=== PATIENT | female | born 1985 | race Caucasian/White ===

== ENCOUNTER 2018-06-25 05:30 | Inpatient (IN) | payer OTHER ==
--- NOTE | 2018-06-24 16:44 | PDOC.LDHP ---
Labor and Delivery H&P Chief complaint: scheduled induction HPI: 33 yo @ 39w1d by LMP c/w 9 week sono. Antepartum course complicated by anemia, otherwise uncomplicated. Current gestational age (weeks): 39 Due date: 06/30/18 Dating criteria: last menstrual period Grav: 5 Para: 3 OB History Details: 3 term SVDs. 1 MAB @ 15 weeks Current complications: none Abnormal US findings: No Past Medical History: Anemia, anxiety and depression Current medications: pre-woodrow vitamins Previous surgical history: other (LEEP) Allergies/Adverse Reactions: Allergies Allergy/AdvReac Type Severity Reaction Status Date / Time No Known Allergies Allergy Verified 06/25/18 10:54 Social history: none - Physical Exam Vital signs reviewed and normal: yes General: NAD Heart: RRR Lungs: nonlabored breathing Abdomen: gravid Extremeties: trace edema FHT: category 1 (130s, mod priscilla, +accels, no decels) Rudolph contractions every: q5+ min - Vaginal Exam cm dilated: 2 (cephalic) Effacement: 75% Station: -2 - OB Labs Blood type: AB RH: positive Antibody Screen: negative HIV: negative RPR: negative HEPSAg: negative 1 hour GCT: positive 3 hour GTT: wnl GBS: negative Urine drug screen: not done Rubella: immune Additional Labs: NIPT, NT and msAFP wnl. - Assessment 39w2d IUP EIOL Anemia - Plan Plan: admit to L&D, informed consent obtained, anesthesia consult for pain management -: Start pitocin for IOL
[2018-06-25] MEDS ORDERED: NS w/ Oxytocin 10 units 500 ML ONE ×2 (10:36→11:43)
[2018-06-25 11:10] VITALS: BMI 26.6
[2018-06-25] MEDS: Lactated Ringer's 1,000 ML IV SCH ×3 (11:20→18:29)
[2018-06-25] MEDS ORDERED: Ibuprofen 800 MG TAB PO PRN (11:39)
[2018-06-25] MEDS ORDERED: Methylergonovine 0.2 MG/ML VIAL IM PRN ×2 (11:39→21:34)
[2018-06-25] MEDS ORDERED: Diphenoxylate HCl/Atropine Tablet PO PRN (11:39)
[2018-06-25] MEDS ORDERED: Ondansetron PF 4 MG/2 ML Vial IVP PRN ×3 (11:39→21:34)
[2018-06-25] MEDS ORDERED: Lidocaine 1% (PF) 30 ML VIAL SC PRN (11:39)
[2018-06-25] MEDS ORDERED: HYDROcodone/Acetaminophen 5/325 mg Tablet PO PRN ×2 (11:39→21:34)
[2018-06-25] MEDS ORDERED: Promethazine HCl 25 MG/ML VIAL IM PRN ×2 (11:39→15:09)
[2018-06-25] MEDS ORDERED: NS w/ Oxytocin 10 units 500 ML IV SCH (11:39)
[2018-06-25] MEDS ORDERED: Butorphanol Tartrate 1 MG/ML VIAL SLOW IVP PRN (11:39)
[2018-06-25] MEDS ORDERED: Carboprost 250 MCG/ML AMP IM PRN (11:39)
[2018-06-25] MEDS ORDERED: Acetaminophen 500 MG TAB PO PRN (11:39)
[2018-06-25 12:46] LABS: Hemoglobin 9.8 g/dL (12.0-16.0); Mean Corpuscular HGB CONC 32.5 g/dL (32.0-36.0); Mean Corpuscular Hemoglobin 29.1 pg (27.0-31.0); Mean Corpuscular Volume 89.5 fL (78.0-98.0); Mean Platelet Volume 7.5 fL (7.4-10.4); Platelet Count 289 thou/uL (130-400); RBC Distribution Width 13.3 % (11.5-14.5); Red Blood Cell (RBC) Count 3.35 mill/uL (4.20-5.40); White Blood Cell (WBC) Count 6.3 thou/uL (4.8-10.8)
[2018-06-25] MEDS ORDERED: Fentanyl 4 mcg/Bup 0.1% Cadd 100 ML ONE (13:05)
[2018-06-25 13:25] LABS: Syphilis Antibody Nonreactive (Nonreactive); Syphilis Antibody Index 0.05 S/CO (<1.00 Non-Reactive)
[2018-06-25 13:26] LABS: HBSAg Index 0.19 S/CO (0-0.99); HIV (1/2) Antibody/Antigen Non-Reactive (NonReactive); HIV 1/2 INDEX 0.11 S/CO (<1.00); Hep B Surf Ag Non-Reactive S/CO (NonReactive)
[2018-06-25] MEDS ORDERED: Lidocaine 1.5%/Epinephrine 1:200,000 5 ML AMPUL IJ ONE (13:29)
[2018-06-25] MEDS ORDERED: Lactated Ringer's 500 ML IV PRN (15:09)
[2018-06-25] MEDS ORDERED: Naloxone HCl 0.4 mg/ml Vial IVP PRN ×2 (15:09)
[2018-06-25] MEDS ORDERED: diphenhydrAMINE 50 MG/ML VIAL IVP PRN (15:09)
[2018-06-25] MEDS ORDERED: ePHEDrine/0.9% NaCl/PF SYRINGE 50 mg/10 ml SLOW IVP PRN (15:09)
[2018-06-25] MEDS ORDERED: Eucerin (Mineral Oil/Petrolatum,White) 30 gm Jar TOP PRN (15:09)
[2018-06-25] MEDS ORDERED: Acetaminophen 325 MG TAB PO PRN (15:09)
[2018-06-25] MEDS ORDERED: Communication Order-Pharmacy FS SCH (15:15)
[2018-06-25] MEDS ORDERED: Fentanyl 4 mcg/Bupivacaine 0.1% Cassette 100 ML EPIDURAL SCH (15:15)
--- NOTE | 2018-06-25 17:07 | PDOC.LDPN ---
Labor & Delivery Progress Note - Subjective Subjective: comfortable - Objective Vital signs reviewed and normal: yes General: NAD Uterine fundus: non tender Dilation: 3-4 Effacement: 90% Station: -1 FHT: category 1 Tightwad contractions every: q1-3 min AROM: clear fluid IUPC placed: yes - Assessment (1) 39 weeks gestation of Code(s): Z3A.39 - 39 WEEKS GESTATION OF Current Visit: Yes Status : Acute -: Continue pitocin. AROM done and IUPC placed due. Scar on cervical os manipulated, noted scar from prior LEEP.
--- NOTE | 2018-06-25 19:22 | PDOC.OPDEL ---
OB Operative/Delivery Note Delivery Dr/Surgeon: Rosemary Mar DO Pre-Delivery Diagnosis: elective induction Procedure/Post Delivery Dx: spontaneous vaginal delivery Weeks gestation: 39 Anesthesia: epidural - Findings A Sex: female - 1 min: 9 - 5 min: 9 - Additional Findings/Plan Placenta delivered: spontaneous Repaired Obstetrical Laceration: other (small bilateral labia lacerations repaired) Estimated blood loss: QBL: Compilations/Other Findings: Infant in cephalic presentation. Clear amniotic fluid Normal appearing placenta Nuchal x 1 Post delivery plan: routine recovery
[2018-06-25] MEDS: NS / Oxytocin 40 units/1000ml 1,000 ML IV PRN ×2 (20:17→21:30)
[2018-06-25] MEDS ORDERED: Lanolin Ointment 7 GM TUBE TOP PRN (21:34)
[2018-06-25] MEDS ORDERED: Measles/Mumps/Rubella 10 MCG/0.5 ML VIAL SC ONE (21:34)
[2018-06-25] MEDS ORDERED: NS / Oxytocin 40 units/1000ml 1,000 ML IV SCH (21:34)
[2018-06-25] MEDS ORDERED: Benzocaine/Menthol 20-0.5% 60 ML CAN TOP PRN (21:34)
[2018-06-25] MEDS ORDERED: Milk Of Magnesia 30 ML UDCUP PO PRN (21:34)
[2018-06-25] MEDS ORDERED: Misoprostol 200 MCG TAB VAG PRN (21:34)
[2018-06-25] MEDS ORDERED: Bisacodyl 10 MG SUPP PR PRN (21:34)
[2018-06-25] MEDS ORDERED: Adacel (T-DAP) 0.5 ML SYRINGE IM ONE (21:34)
[2018-06-25] MEDS: Docusate Calcium (SURFAK) 240 MG CAP PO SCH (22:16)
[2018-06-25] MEDS: Ibuprofen 800 MG TAB PO SCH (22:16)
[2018-06-26] MEDS: HYDROcodone/Acetaminophen 5/325 mg Tablet PO PRN ×4 (00:23→18:52)
[2018-06-26] MEDS: Ibuprofen 800 MG TAB PO SCH ×2 (05:52→14:07)
[2018-06-26 06:45] LABS: Hemoglobin 9.8 g/dL (12.0-16.0); Mean Corpuscular HGB CONC 33.1 g/dL (32.0-36.0); Mean Corpuscular Hemoglobin 29.4 pg (27.0-31.0); Mean Corpuscular Volume 88.8 fL (78.0-98.0); Mean Platelet Volume 7.3 fL (7.4-10.4); Platelet Count 253 thou/uL (130-400); RBC Distribution Width 13.1 % (11.5-14.5); Red Blood Cell (RBC) Count 3.34 mill/uL (4.20-5.40); White Blood Cell (WBC) Count 12.2 thou/uL (4.8-10.8)
[2018-06-26] MEDS ORDERED: Prenatal Vitamin 1 TAB PO SCH (09:00)
[2018-06-26] MEDS: Docusate Calcium (SURFAK) 240 MG CAP PO SCH (09:47)
[2018-06-26] MEDS: Ferrous Sulfate 325 MG TAB PO SCH ×2 (09:47→17:57)
--- NOTE | 2018-06-26 12:42 | PDOC.PP ---
Post Progress Note Post Day #: 1 Subjective: No concerns. Minimal lochia. Pain controlled with PRN pain meds. Breast feeding. PO intake tolerated: yes Flatus: yes Ambulation: yes Vital Signs (12 hours) Temp Pulse Resp BP Pulse Ox 06/26/18 11:44 97.6 F 83 20 116/77 06/26/18 08:20 99 06/26/18 08:00 97.8 F 82 20 104/60 99 06/26/18 04:20 97.8 F 75 16 102/58 L 99 Weight Weight 175 lb - Physical Examination General: NAD Cardiovascular: RRR Respiratory: non-labored breathing Abdominal: no distention, appropriately TTP Fundus firm & at: below umbilicus Extremities: negative homans (B) Neurological: no gross focal deficits Psychiatric: A&Ox3, normal affect Result Diagrams: 06/26/18 06:20 Additional Labs: Post Labs Blood Type AB POSITIVE 06/25/18 12:26 Hep Bs Antigen Non-Reactive S/CO (NonReactive) 06/25/18 12:26 (1) 39 weeks gestation of Code(s): Z3A.39 - 39 WEEKS GESTATION OF Status: Resolved (2) Vaginal delivery Code(s): O80 - ENCOUNTER FOR FULL-TERM UNCOMPLICATED DELIVERY Status: Acute - Assessment/Plan PPD1 VSSAF Plan for d/c home this evening with infant.
[2018-06-26] MEDS ORDERED: Lidocaine 2% MPF 10 ML AMP (For Epidural Use) ONE (15:36)
[2018-06-26 21:03] VITALS: BP 107/70; TEMP 97.6
== END 2018-06-26 21:45 | disposition home or self-care (01) | DRG 807 ==
LOC: L&D 10:25 → 3SE 22:14
PROVIDERS: ADMIT Obstetrics & Gynecology; ATTEND Obstetrics & Gynecology
PROC: 10E0XZZ Delivery of Products of Conception, External Approach (ICD-10-PCS; principal; 2018-06-25)
PROC: 0HQ9XZZ Repair Perineum Skin, External Approach (ICD-10-PCS; 2018-06-25)
PROC: 10H07YZ Insertion of Other Device into Products of Conception, Via Natural or Artificial Opening (ICD-10-PCS; 2018-06-25)
PROC: 10907ZC Drainage of Amniotic Fluid, Therapeutic from Products of Conception, Via Natural or Artificial Opening (ICD-10-PCS; 2018-06-25)
PROC: 3E033VJ Introduction of Other Hormone into Peripheral Vein, Percutaneous Approach (ICD-10-PCS; 2018-06-25)
DX: O99.02 Anemia complicating childbirth (principal); Z37.0 Single live birth; O69.81X0 Labor and delivery complicated by cord around neck, without compression, not applicable or unspecified; O70.0 First degree perineal laceration during delivery; D64.9 Anemia, unspecified; Z3A.39 39 weeks gestation of pregnancy
CPT/HCPCS: 36415; 51702; 85027; 86780; 86850; 86900; 86901; 87340; 87389; J1200; J2001; J3490